=== PATIENT | female | born 1950 | race Caucasian/White ===

== ENCOUNTER → 2019-02-04 | Outpatient (CLI) | payer MEDICARE, OTHER ==
--- NOTE | 2019-02-06 10:04 | REPMRS ---
Patient History The patient states she has not had a clinical breast exam in over a year. Patient is postmenopausal. Family history of breast cancer at age 70 in mother. Digital Mammo Screening Bilat: February 04, 2019 - Exam #: [id number] Bilateral CC and MLO view(s) were taken. Technologist: Amparo Sotelo Technologist Prior study comparison: June 24, 2008, bilateral mammogram, performed at [facility]. FINDINGS: There are scattered fibroglandular densities. There has been no change in the appearance of the mammogram from the prior studies. There is a mild amount of scattered fibroglandular density which is fairly symmetric. There is no interval development of dominant mass, architectural distortion, or grouped microcalcification suggestive of malignancy. 3-D tomosynthesis shows no additional findings. Assessment: BI-RADS/ACR category 1 mammogram. Negative Mammogram. Recommendation Routine screening mammogram of both breasts in 1 year (for women over age 40). This patient's Lifetime Breast Cancer Risk is estimated at 11.9 %. This mammogram was interpreted with the aid of an FDA-approved computer-aided dectection system. Electronically Signed By: Daniel Hood MD 02/06/19 [id number]
== END ==
LOC: M RAD 11:38
PROVIDERS: ATTEND Physician Assistant Medical
DX: Z12.31 Encounter for screening mammogram for malignant neoplasm of breast (principal); Z78.0 Asymptomatic menopausal state; Z80.3 Family history of malignant neoplasm of breast

== ENCOUNTER → 2019-12-25 | Outpatient (CLI) | payer MEDICARE, OTHER | LOC: M LABSMTC 10:50 | PROVIDERS: ATTEND Internal Medicine Cardiovascular Disease | DX: Z01.812 Encounter for preprocedural laboratory examination (principal); Z20.828 Contact with and (suspected) exposure to other viral communicable diseases; I48.0 Paroxysmal atrial fibrillation | CPT/HCPCS: C9803; U0003 ==

== ENCOUNTER 2020-08-28 17:19 | Emergency (ER) | payer MEDICARE, OTHER ==
[~2020-08-28] VITALS: Ht 172.7 cm; Wt 118.2 kg
[2020-08-28] MEDS ORDERED: COQ-30CA2 PO (17:36)
[2020-08-28] MEDS ORDERED: MULT1TAB42 PO (17:36)
[2020-08-28] MEDS ORDERED: ATOR40TA75 (17:36)
[2020-08-28] MEDS ORDERED: BISO5TAB14 (17:36)
[2020-08-28] MEDS ORDERED: MELO15TA28 (17:36)
[2020-08-28] MEDS ORDERED: XARE10TA PO (17:36)
[2020-08-28] MEDS ORDERED: TROPICAMIDE 0.5% OPHTH SOLN 15 ML OU ONE (18:50)
[2020-08-28] MEDS ORDERED: PHENYLEPHRINE 2.5% OPHTH SOL 2ML OU ONE (18:50)
--- NOTE | 2020-08-28 19:01 | REPVR ---
PROCEDURE INFORMATION: Exam: CT Head Without Contrast Exam date and time: 08/28/2020 5:57 PM Age: 70 years old Clinical indication: Visual disturbance; Additional info: Vision loss TECHNIQUE: Imaging protocol: Computed tomography of the head without contrast. Radiation optimization: All CT scans at this facility use at least one of these dose optimization techniques: automated exposure control; mA and/or kV adjustment per patient size (includes targeted exams where dose is matched to clinical indication); or iterative reconstruction. COMPARISON: No relevant prior studies available. FINDINGS: Brain: There is a small slightly ill-defined area of low density present in the left rivera radiata seen on images 15 and 16 of series 201. This could be a small acute or subacute ischemic infarct. No acute intracerebral bleed. I would recommend obtaining an MRI of the brain to confirm or disprove an acute infarct. [place] Stroke Program Early CT Score (ASPECTS score) = 9. Cerebral ventricles: No ventriculomegaly. Paranasal sinuses: Visualized sinuses are unremarkable. No fluid levels. Mastoid air cells: Visualized mastoid air cells are well aerated. Bones/joints: Unremarkable. No acute fracture. Soft tissues: Unremarkable. IMPRESSION: 1. There is a small slightly ill-defined area of low density present in the left rivera radiata seen on images 15 and 16 of series 201. This could be a small acute or subacute ischemic infarct. No acute intracerebral bleed. I would recommend obtaining an MRI of the brain to confirm or disprove an acute infarct. 2. [place] Stroke Program Early CT Score (ASPECTS score) = 9. Electronically signed by: Hemanth Anthony On 08/28/2020 19:01:15 PM
--- NOTE | 2020-08-28 22:38 | REPVR ---
PROCEDURE INFORMATION: Exam: MR Head Without Contrast Exam date and time: 08/28/2020 10:35 PM Age: 70 years old Clinical indication: Abnormal findings; Abnormal radiologic findings of head/skull; Ischemia; Additional info: Abnormal CT scan TECHNIQUE: Imaging protocol: MR of the head without contrast. COMPARISON: CT Head without contrast 2020-08-28 17:54 FINDINGS: Brain: Brain: No diffusion restriction to suggest acute ischemia or infarction. Mild scattered FLAIR hyperintense foci within the supratentorial deep and subcortical white matter suggesting mild chronic small vessel ischemic disease. No gradient susceptibility blooming within the brain parenchyma to suggest hemorrhage. No midline shift, mass, or fluid collection is present. Diffuse cerebral age related volume loss. The brainstem, posterior fossa and cervical medullary junction are preserved. No brain parenchymal diffusion restriction to suggest acute ischemia or infarction. 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 Cerebral ventricles: Ventricular enlargement proportional to volume loss. Pituitary gland and sella: Partially empty sella turcica with atrophic pituitary gland. Bones/joints: Unremarkable. Paranasal sinuses: Normal as visualized. No acute sinusitis. Mastoid air cells: Normal as visualized. No mastoid effusion. Orbital cavity: Unremarkable. Soft tissues: Unremarkable. IMPRESSION: Mild age-related changes. No acute abnormality. Electronically signed by: Eric Valadez On 08/28/2020 22:38:35 PM
[2020-08-28 23:23] VITALS: BP 160/80
== END 2020-08-28 23:27 | disposition home or self-care (01) ==
LOC: M ED 17:19
DX: H43.12 Vitreous hemorrhage, left eye (principal); I48.91 Unspecified atrial fibrillation; I10 Essential (primary) hypertension; Z79.899 Other long term (current) drug therapy; Z79.01 Long term (current) use of anticoagulants; Z88.0 Allergy status to penicillin; Z91.013 Allergy to seafood

== ENCOUNTER → 2021-08-16 | Outpatient (CLI) | payer MEDICARE ==
[~2021-08-16] MED LIST: ATOR40TA75; ATOR40TA75 PO; ATOR80TA59 PO; BISO5TAB14 PO; COQ-30CA2 PO; MELO15TA28; MULT1TAB42 PO; WOMETAB PO; XARE10TA PO; XARE20TA PO
== END ==
LOC: M LABSMTC 09:53
PROVIDERS: ATTEND Anesthesiology
DX: Z11.52 Encounter for screening for COVID-19 (principal); Z20.822 Contact with and (suspected) exposure to COVID-19

== ENCOUNTER 2021-08-21 08:17 | Day surgery (SDC) | payer MEDICARE ==
[~2021-08-21] VITALS: Ht 172.7 cm; Wt 113.4 kg
[~2021-08-21 08:17] MED LIST changes: +LIDOCAINE 1% SDV 5ML VIAL As Ordered ONE; +PROPARACAINE 0.5% OPHTH SOL 15ML OS ONE
[2021-08-21] MEDS: TROPICAMIDE 1% OPHTH SOLN 2ML OS SCH ×2 (08:42→14:19)
[2021-08-21] MEDS: PHENYLEPHRINE 2.5% OPHTH SOL 2ML OS SCH ×2 (08:42→14:19)
[2021-08-21] MEDS: OFLOXACIN 0.3 % (OCUFLOX) OPTH SOL 5ML OS SCH ×2 (08:43→14:19)
[2021-08-21] MEDS ORDERED: INSULIN LISPRO (NovoLOG) PER UNIT SC PRN (08:45)
[2021-08-21] MEDS ORDERED: fentaNYL 100 MCG/2 ML INJECTION As Ordered ONE (09:36)
[2021-08-21] MEDS ORDERED: MIDAZOLAM INJ 2MG/2ML VIAL (J2250 PER 1MG) As Ordered ONE (09:36)
[2021-08-21 10:50] VITALS: BP 160/78
== END 2021-08-21 11:34 | disposition home or self-care (01) ==
LOC: M SDC 08:17
PROVIDERS: ATTEND Ophthalmology
DX: H25.12 Age-related nuclear cataract, left eye (principal); I10 Essential (primary) hypertension; I48.91 Unspecified atrial fibrillation; E78.5 Hyperlipidemia, unspecified; R32 Unspecified urinary incontinence; Z79.01 Long term (current) use of anticoagulants; Z79.899 Other long term (current) drug therapy
CPT/HCPCS: 66984; J2250; J3010; V2632

== ENCOUNTER → 2022-01-30 | Outpatient (CLI) | payer MEDICARE ==
[~2022-01-30] MED LIST changes: -LIDOCAINE 1% SDV 5ML VIAL As Ordered ONE; -PROPARACAINE 0.5% OPHTH SOL 15ML OS ONE
== END ==
LOC: M PLAIMG 12:02
PROVIDERS: ATTEND Nurse Practitioner Family
DX: M54.12 Radiculopathy, cervical region (principal)

== ENCOUNTER 2023-10-14 10:02 | Day surgery (SDC) | payer MEDICARE, OTHER ==
[~2023-10-14] VITALS: Ht 172.7 cm; Wt 121.1 kg
[~2023-10-14 10:02] MED LIST changes: +COQ150CH PO; +DILT180C78 PO; +LR 1,000 ML IV SCH; +MIDAZOLAM INJ 2MG/2ML VIAL As Ordered ONE; +MM S100C PO; +ROSU20TA61 PO; +VITA100093 PO; +fentaNYL 100 MCG/2 ML INJECTION As Ordered ONE
[2023-10-14] MEDS: PHENYLEPHRINE 2.5% OPHTH SOL 2ML OD SCH (10:51)
[2023-10-14] MEDS: FLURBIPROFEN 0.03% OPHTH SOLN 2.5 ML OD SCH (10:51)
[2023-10-14] MEDS: TETRACAINE 0.5% OPHTH SOLN 4ML OD SCH (10:51)
[2023-10-14] MEDS: ATROPINE SULFATE 1% OPHTH SOLN 2ML BTL OD SCH (10:52)
[2023-10-14] MEDS: LIDOCAINE 1% SDV 5ML VIAL As Ordered ONE (12:35)
[2023-10-14] MEDS: MOXIFLOXACIN 0.6MG/0.4ML INTRAOCULAR SYRINGE As Ordered ONE (12:36)
[2023-10-14 12:54] VITALS: BP 121/81; TEMP 97.8; O2SAT 98
== END 2023-10-14 13:24 | disposition home or self-care (01) ==
LOC: M SDC 10:02
PROVIDERS: ATTEND Ophthalmology
DX: H25.11 Age-related nuclear cataract, right eye (principal); I48.91 Unspecified atrial fibrillation; I10 Essential (primary) hypertension; E78.00 Pure hypercholesterolemia, unspecified; Z98.42 Cataract extraction status, left eye; Z88.0 Allergy status to penicillin; Z88.8 Allergy status to other drugs, medicaments and biological substances; Z91.013 Allergy to seafood; Z79.899 Other long term (current) drug therapy; Z79.01 Long term (current) use of anticoagulants
CPT/HCPCS: 66984; J2250; J3010; V2632

== ENCOUNTER → 2024-05-15 | Outpatient (CLI) | payer OTHER ==
[~2024-05-15] MED LIST changes: -LR 1,000 ML IV SCH; -MIDAZOLAM INJ 2MG/2ML VIAL As Ordered ONE; -ROSU20TA61 PO; +ROSU20TA86 PO; -fentaNYL 100 MCG/2 ML INJECTION As Ordered ONE
== END ==
LOC: M WUC 15:44
DX: M19.031 Primary osteoarthritis, right wrist (principal)

== ENCOUNTER → 2024-06-10 | Outpatient (CLI) | payer MEDICARE | LOC: M WHC 13:08 | DX: Z12.31 Encounter for screening mammogram for malignant neoplasm of breast (principal) ==

== ENCOUNTER 2024-11-28 11:02 | Emergency (ER) | payer MEDICARE, MEDICAID ==
[~2024-11-28] VITALS: Ht 172.7 cm; Wt 118.8 kg
[~2024-11-28 11:02] MED LIST changes: -HOLTER MONITOR XX
[2024-11-28 11:48] LABS: BASO # 0.1 10^3/uL (0.0-0.2); BASO % 1.0 % (0.0-1.0); EOS # 0.3 10^3/uL (0.0-0.5); EOS % 3.7 % (0.0-3.0); LYMPH # 1.2 10^3/uL (1.5-5.0); LYMPH % 18.6 % (24.0-44.0); MONO # 1.0 10^3/uL (0.0-0.8); MONO % 14.7 % (2.0-8.0); NEUTROPHILS # 4.1 10^3/uL (1.5-8.5); NEUTROPHILS % 61.9 % (36.0-66.0); PLATELET COUNT, AUTOMATED 144 10^3/uL (150-450)
[2024-11-28 12:01] LABS: INR 2.05
[2024-11-28 12:43] LABS: ALT/SGPT 22 U/L (7.0-40); AST/SGOT 17 U/L (<34); CALCIUM LEVEL 9.7 MG/DL (8.3-10.6); CARBON DIOXIDE LEVEL 29 MMOL/L (20-31); CHLORIDE LEVEL 107 MMOL/L (98-107); CK-MB VALUE MASS 1.9 NG/ML (<3.6); CPK CREATINE PHOSPHOKINASE 76 U/L (34-145); CREATININE FOR GFR 0.70 MG/DL (0.55-1.30); GLOMERULAR FILTRATION RATE > 90.0 (>39); MB/CK RELATIVE INDEX 2.50 (< OR =4); POTASSIUM SERUM 4.6 MMOL/L (3.5-5.1); SODIUM LEVEL 145 MMOL/L (136-145)
[2024-11-28 13:49] LABS: KETONE, URINE AUTO RFX NEGATIVE (NEGATIVE); MUCUS, URINE RFX SMALL (NEGATIVE); NITRITE, URINE AUTO RFX NEGATIVE (NEGATIVE); RBC, URINE AUTO RFX 5 /HPF (0-3); SQUAM EPITHELIAL CELL UR AURFX 6 /HPF (0-6); WBC, URINE AUTO RFX 2 /HPF (0-3)
[2024-11-28 13:50] LABS: LEUKOCYTE ESTERASE UR AUTO RFX 3+ (NEGATIVE)
[2024-11-28 14:11] LABS: MAGNESIUM LEVEL 2.1 MG/DL (1.8-2.4)
[2024-11-28] MEDS ORDERED: HOLTER MONITOR XX (14:29)
[2024-11-28 14:47] VITALS: BP 120/86; TEMP 97.1; O2SAT 89
== END 2024-11-28 14:54 | disposition home or self-care (01) ==
LOC: M ED 11:02
DX: I48.91 Unspecified atrial fibrillation (principal); R53.83 Other fatigue; M17.0 Bilateral primary osteoarthritis of knee; I45.10 Unspecified right bundle-branch block; I10 Essential (primary) hypertension; E78.5 Hyperlipidemia, unspecified; Z88.0 Allergy status to penicillin; Z88.6 Allergy status to analgesic agent; Z91.013 Allergy to seafood; Z79.01 Long term (current) use of anticoagulants; Z79.899 Other long term (current) drug therapy

== ENCOUNTER → 2024-11-28 | Outpatient (CLI) | payer MEDICARE, MEDICAID ==
[~2024-11-28] MED LIST changes: +HOLTER MONITOR XX
== END ==
LOC: M EKG 15:02
PROVIDERS: ATTEND Emergency Medicine
DX: I48.91 Unspecified atrial fibrillation (principal); Z53.9 Procedure and treatment not carried out, unspecified reason